=== PATIENT | male | born 1985 | race African-American/Black ===

== ENCOUNTER 2024-02-03 21:35 | Emergency (ER) | payer MEDICAID ==
[~2024-02-03] VITALS: Ht 170.2 cm; Wt 71.0 kg
[2024-02-03 21:56] VITALS: O2SAT 99
[2024-02-03] MEDS ORDERED: LIDOCAINE HCL/PF 1% 10 MG/ML 5ML VIAL INFIL ONE (23:15)
[2024-02-03] MEDS ORDERED: TETANUS, DIPHTHERIA, PERTUSSIS VAC/PF 0.5ML (>10YR OLD) IM ONE (23:15)
[2024-02-03] MEDS: TETANUS, DIPHTHERIA, PERTUSSIS VAC/PF 0.5ML (>10YR OLD) IM ONE (23:38)
[2024-02-04 03:08] VITALS: BP 101/65; PULSE 84; RESP 15; TEMP 99.8
== END 2024-02-04 03:19 | disposition home or self-care (01) ==
LOC: ER 21:35
DX: S01.511A Laceration without foreign body of lip, initial encounter (principal); Y04.0XXA Assault by unarmed brawl or fight, initial encounter; Y93.89 Activity, other specified; Y92.89 Other specified places as the place of occurrence of the external cause; Y99.9 Unspecified external cause status
CPT/HCPCS: 70450; 90715; 12011; 90471; 99285; J3490; Z7610 ×2

== ENCOUNTER 2024-03-02 10:30 | Emergency (ER) | payer MEDICAID ==
[~2024-03-02] VITALS: Ht 175.3 cm; Wt 75.0 kg
[2024-03-02 10:36] VITALS: O2SAT 100
[2024-03-02] MEDS ORDERED: IBUP-2029 MT (11:14)
[2024-03-02 11:25] VITALS: BP 127/92; PULSE 60; RESP 18; TEMP 98.5
== END 2024-03-02 11:26 | disposition home or self-care (01) ==
LOC: ER 10:30
DX: S42.002A Fracture of unspecified part of left clavicle, initial encounter for closed fracture (principal); W18.30XA Fall on same level, unspecified, initial encounter; Y93.67 Activity, basketball; Y92.89 Other specified places as the place of occurrence of the external cause; Y99.8 Other external cause status
CPT/HCPCS: 73030; 99283; A4565